=== PATIENT | male | born 1960 | race African-American/Black ===

== ENCOUNTER 2021-08-15 01:01 | Inpatient (IN) | payer MEDICAID, OTHER ==
[2021-08-15] VITALS (8 sets, daily range): BP systolic 102–139; BP diastolic 55–85
[~2021-08-15] VITALS: Ht 182.9 cm; Wt 78.0 kg
[2021-08-15 01:48] LABS: HEMATOCRIT. 34.8 % (42.0-52.0); HEMOGLOBIN. 11.5 g/dL (14.0-18.0); MEAN CORPUSCULAR HEMOGLOBIN 28.6 pg (28.0-32.0); MEAN CORPUSCULAR VOLUME 86.8 fL (80.0-94.0); MEAN PLATELET VOLUME 7.6 fl (7.4-10.4); PLATELET 262 x1000/uL (130-400); RED CELL DISTRIBUTION WIDTH 14.4 % (11.6-14.6)
[2021-08-15 02:00] LABS: CHLORIDE 102 mEq/L (98-107)
[2021-08-15 02:04] LABS: ETHANOL BLOOD < 10 mg/dL
[2021-08-15 02:09] LABS: CREATINE KINASE 733 IU/L (39-308)
[2021-08-15 02:12] LABS: PLATELET ESTIMATE NORMAL
[2021-08-15] MEDS ORDERED: SODIUM CHLORIDE 0.9% 1,000 ML IV ONE (02:15)
[2021-08-15] MEDS ORDERED: LORAZEPAM 2MG/ML CPJ IV ONE (04:45)
[2021-08-15] MEDS ORDERED: CLONIDINE 0.1MG TABLET PO PRN (12:15)
[2021-08-15] MEDS ORDERED: GUAIFENESIN 200MG/10ML SUGAR FREE UDC PO PRN (12:15)
[2021-08-15] MEDS ORDERED: ONDANSETRON HCL 4MG/2ML INJ IV PRN (12:15)
[2021-08-15] MEDS ORDERED: DOCUSATE SODIUM 100MG CAPSULE PO PRN (12:15)
[2021-08-15] MEDS ORDERED: ACETAMINOPHEN 325MG TABLET PO PRN ×2 (12:15)
[2021-08-15] MEDS ORDERED: MAGNESIUM/ALUMINUM HYDROXIDE/SIMETHICONE 30ML UDC PO PRN (12:15)
[2021-08-15] MEDS ORDERED: IPRATROPIUM/ALBUTEROL 0.5-3(2.5)MG/3ML NEB NEB PRN (12:15)
[2021-08-15] MEDS ORDERED: KETOROLAC 30MG/ML VIAL IV PRN (12:15)
[2021-08-15] MEDS ORDERED: ZOLPIDEM TARTRATE 5MG TABLET PO PRN (12:15)
[2021-08-15] MEDS ORDERED: KETOROLAC 15MG/ML VIAL IV PRN (13:22)
[2021-08-15 14:02] LABS: CLARITY URINE CLEAR (CLEAR); COLOR URINE YELLOW (YELLOW); KETONES URINE TRACE (NEGATIVE); LEUKOCYTE ESTERASE URINE NEGATIVE (NEGATIVE); NITRITE URINE NEGATIVE (NEGATIVE); OCCULT BLOOD URINE NEGATIVE (NEGATIVE); PH URINE 5.5 (4.5-8.0); PROTEIN URINE NEGATIVE (NEGATIVE); SPECIFIC GRAVITY URINE 1.023 (1.005-1.030); UROBILINOGEN URINE 0.2 E.U./dL (0.2-1.0)
[2021-08-15 14:19] LABS: *AMPHETAMINES SCREEN URINE NEGATIVE (NEGATIVE); *BARBITURATES SCREEN URINE NEGATIVE (NEGATIVE); *BENZODIAZEPINES SCREEN URINE NEGATIVE (NEGATIVE); *COCAINE SCREEN URINE PRESUMTIVE POSITIVE (NEGATIVE); OPIATES URINE SCREEN NEGATIVE (NEGATIVE)
[2021-08-15 14:20] LABS: CANNABINOID URINE SCREEN PRESUMTIVE POSITIVE (NEGATIVE); PHENCYCLIDINE URINE SCREEN NEGATIVE (NEGATIVE)
[2021-08-15 14:29] LABS: METHADONE URINE SCREEN NEGATIVE (NEGATIVE)
[2021-08-15] MEDS: ENOXAPARIN 40MG/0.4ML SYR SUBCUT SCH (16:12)
[2021-08-15] MEDS: SODIUM CHLORIDE 0.9% 1,000 ML IV SCH ×2 (16:13→22:25)
[2021-08-15 16:48] LABS: ETHANOL BLOOD < 10 mg/dL
[2021-08-15 16:49] LABS: LDL CHOLESTEROL 55 mg/dL (5-100)
[2021-08-15 16:51] LABS: HDL CHOLESTEROL 81 mg/dL (40-59)
[2021-08-15 16:52] LABS: CREATINE KINASE MB FRACTION 3.7 ng/mL (0.5-3.6)
[2021-08-15 16:54] LABS: T4 FREE 1.47 ng/dL (0.76-1.46); TOTAL IRON BINDING CAPACITY 392 ug/dL (250-450)
[2021-08-15 16:59] LABS: FOLIC ACID (FOLATE) SERUM >20 ng/mL ng/mL (>5.38)
[2021-08-15 17:10] LABS: VITAMIN B12 SERUM 276 pg/mL (211-911)
[2021-08-15] MEDS: FAMOTIDINE 20MG TABLET PO SCH (22:24)
[2021-08-16] VITALS: BP 118/65
[2021-08-16 02:02] VITALS: BP 128/76
[2021-08-16 04:00] VITALS: BP 92/52
[2021-08-16 06:00] VITALS: BP 149/90
[2021-08-16 07:08] LABS: *BENZODIAZEPINES SCREEN URINE NEGATIVE (NEGATIVE); *COCAINE SCREEN URINE PRESUMTIVE POSITIVE (NEGATIVE)
[2021-08-16 07:09] LABS: *BARBITURATES SCREEN URINE NEGATIVE (NEGATIVE); CANNABINOID URINE SCREEN PRESUMTIVE POSITIVE (NEGATIVE); OPIATES URINE SCREEN NEGATIVE (NEGATIVE); PHENCYCLIDINE URINE SCREEN NEGATIVE (NEGATIVE)
[2021-08-16 07:10] LABS: *AMPHETAMINES SCREEN URINE NEGATIVE (NEGATIVE); METHADONE URINE SCREEN NEGATIVE (NEGATIVE)
[2021-08-16] MEDS: FAMOTIDINE 20MG TABLET PO SCH ×3 (09:00→22:46)
[2021-08-16] MEDS: SODIUM CHLORIDE 0.9% 1,000 ML IV SCH ×2 (09:22→18:15)
[2021-08-16] MEDS: ENOXAPARIN 40MG/0.4ML SYR SUBCUT SCH (12:30)
[2021-08-16] MEDS: BLOOD SUGAR DIAGNOSTIC STRIP TEST SCH ×2 (16:40→21:00)
[2021-08-16] MEDS ORDERED: DEXTROSE 50% WATER 50ML SYRINGE IV PRN (16:45)
[2021-08-16] MEDS: INSULIN LISPRO 100 UNITS/ML SUBCUT SCH ×2 (17:10→22:47)
[2021-08-16 19:09] LABS: BASOPHILS % 0.2 % (0.0-2.0); EOSINOPHILS % 3.9 % (0.0-5.0); HEMATOCRIT. 37.3 % (42.0-52.0); HEMOGLOBIN. 12.4 g/dL (14.0-18.0); LYMPHOCYTES % 22.1 % (20.0-50.0); MEAN CORPUSCULAR HEMOGLOBIN 29.3 pg (28.0-32.0); MEAN CORPUSCULAR VOLUME 88.5 fL (80.0-94.0); MEAN PLATELET VOLUME 7.8 fl (7.4-10.4); NEUTROPHILS % 64.8 % (40.0-76.0); PLATELET 281 x1000/uL (130-400); RED BLOOD CELL COUNT 4.22 mill/uL (4.7-6.1)
[2021-08-16 19:21] LABS: CHLORIDE 103 mEq/L (98-107)
[2021-08-16 19:27] LABS: PHOSPHORUS 2.7 mg/dL (2.5-4.9)
[2021-08-16 19:29] LABS: CREATINE KINASE 242 IU/L (39-308)
[2021-08-16 19:32] LABS: CREATINE KINASE MB FRACTION 1.4 ng/mL (0.5-3.6)
[2021-08-16 20:00] VITALS: BP 117/75
[2021-08-17] VITALS: BP 120/80
[2021-08-17 04:00] VITALS: BP 118/78
[2021-08-17] MEDS: SODIUM CHLORIDE 0.9% 1,000 ML IV SCH ×2 (04:15→14:15)
[2021-08-17] MEDS: BLOOD SUGAR DIAGNOSTIC STRIP TEST SCH ×4 (06:01→21:33)
[2021-08-17] MEDS: INSULIN LISPRO 100 UNITS/ML SUBCUT SCH ×4 (06:42→21:35)
[2021-08-17 08:00] VITALS: BP 90/58
[2021-08-17] MEDS: FAMOTIDINE 20MG TABLET PO SCH ×2 (08:51→21:37)
[2021-08-17 12:00] VITALS: BP 121/99
[2021-08-17] MEDS: ENOXAPARIN 40MG/0.4ML SYR SUBCUT SCH (12:56)
[2021-08-17] MEDS: INSULIN GLARGINE 100 UNITS/ML SUBCUT SCH (13:19)
[2021-08-17 16:00] VITALS: BP 105/76
[2021-08-17 20:00] VITALS: BP 108/66
[2021-08-18] VITALS: BP 110/48
[2021-08-18] MEDS: SODIUM CHLORIDE 0.9% 1,000 ML IV SCH (00:03)
[2021-08-18] MEDS: BLOOD SUGAR DIAGNOSTIC STRIP TEST SCH ×4 (05:58→21:00)
[2021-08-18] MEDS: INSULIN LISPRO 100 UNITS/ML SUBCUT SCH ×4 (06:32→22:21)
[2021-08-18 08:00] VITALS: BP 112/61
[2021-08-18] MEDS: FAMOTIDINE 20MG TABLET PO SCH ×2 (08:36→22:20)
[2021-08-18] MEDS ORDERED: INSHUMSS SUBCUT (09:44)
[2021-08-18] MEDS ORDERED: LANTUSUD SUBCUT (09:44)
[2021-08-18] MEDS: INSULIN GLARGINE 100 UNITS/ML SUBCUT SCH (10:39)
[2021-08-18 12:00] VITALS: BP 121/65
[2021-08-18] MEDS: ENOXAPARIN 40MG/0.4ML SYR SUBCUT SCH (12:30)
[2021-08-18 16:00] VITALS: BP 115/65
[2021-08-18 20:00] VITALS: BP 107/70
[2021-08-19] VITALS: BP 123/69
[2021-08-19 04:00] VITALS: BP 102/68
[2021-08-19 06:00] VITALS: BP 107/69
[2021-08-19] MEDS: BLOOD SUGAR DIAGNOSTIC STRIP TEST SCH (06:31)
[2021-08-19 08:00] VITALS: BP 124/79
[2021-08-19] MEDS: FAMOTIDINE 20MG TABLET PO SCH (08:30)
[2021-08-19] MEDS: INSULIN LISPRO 100 UNITS/ML SUBCUT SCH (08:30)
[2021-08-19 09:17] VITALS: BP_SYST 124
== END 2021-08-19 11:00 | disposition home or self-care (01) | DRG 52 ==
LOC: ER 01:01 → EDBD 04:48 → 5EST 04:48 → 7EST 08-16 12:05
PROVIDERS: ADMIT Internal Medicine; ATTEND Internal Medicine
DX: G92.8 Other toxic encephalopathy (principal); M62.82 Rhabdomyolysis; D63.8 Anemia in other chronic diseases classified elsewhere; E87.1 Hypo-osmolality and hyponatremia; E11.65 Type 2 diabetes mellitus with hyperglycemia; F14.10 Cocaine abuse, uncomplicated; F12.10 Cannabis abuse, uncomplicated; Z59.00 Homelessness unspecified; F19.10 Other psychoactive substance abuse, uncomplicated; Z71.51 Drug abuse counseling and surveillance of drug abuser
CPT/HCPCS: 36415; 71045; 80053; 80061; 80305; 80320; 81003; 82140; 82550; 82553; 82607; 82746; 82962; 83036; 83540; 83550; 83605; 83735; 83880; 84100; 84439; 84443; 84484; 85025; 93005; 93306; 93970; 97162; 97166; 97530; 99285; J1650; J1815; J2060; J7030; G0480

== ENCOUNTER 2021-11-12 06:12 | Inpatient (IN) | payer MEDICAID, OTHER ==
[~2021-11-12] VITALS: Ht 185.4 cm; Wt 81.6 kg
[~2021-11-12 06:12] MED LIST: INSHUMSS SUBCUT; LANTUSUD SUBCUT
[2021-11-12] MEDS ORDERED: ACETAMINOPHEN 325MG TABLET PO STA (08:46)
[2021-11-12] MEDS ORDERED: ACETAMINOPHEN 325MG TABLET PO NR (09:15)
[2021-11-12 09:48] LABS: HEMATOCRIT. 34.5 % (42.0-52.0); HEMOGLOBIN. 11.4 g/dL (14.0-18.0); MEAN CORPUSCULAR HEMOGLOBIN 29.8 pg (28.0-32.0); MEAN PLATELET VOLUME 7.5 fl (7.4-10.4); PLATELET 281 x1000/uL (130-400); RED BLOOD CELL COUNT 3.83 mill/uL (4.7-6.1); RED CELL DISTRIBUTION WIDTH 14.4 % (11.6-14.6)
[2021-11-12 10:00] LABS: CHLORIDE 95 mEq/L (98-107)
[2021-11-12 10:14] LABS: PLATELET ESTIMATE NORMAL
[2021-11-12] MEDS ORDERED: AMPICILLIN SOD/SULBACTAM NA 3 G in SODIUM CHLORIDE 0.9% 100 ML IV SCH (11:30)
[2021-11-12] MEDS ORDERED: ONDANSETRON HCL 4MG/2ML INJ IV PRN (14:00)
[2021-11-12] MEDS ORDERED: CLONIDINE 0.1MG TABLET PO PRN (14:00)
[2021-11-12] MEDS ORDERED: ACETAMINOPHEN 325MG TABLET PO PRN (14:00)
[2021-11-12] MEDS ORDERED: DOCUSATE SODIUM 100MG CAPSULE PO PRN (14:00)
[2021-11-12] MEDS ORDERED: DEXTROSE 50% WATER 50ML SYRINGE IV PRN (14:45)
[2021-11-12] MEDS ORDERED: NALOXONE HCL 0.4MG/ML VIAL IV PRN (15:00)
[2021-11-12] MEDS ORDERED: INSULIN LISPRO 100 UNITS/ML SUBCUT SCH (15:00)
[2021-11-12] MEDS: ENOXAPARIN 40MG/0.4ML SYR SUBCUT SCH (15:05)
[2021-11-12] MEDS ORDERED: VANCOMYCIN 1.25GM PMX (XELLIA) 250 ML IV SCH (16:30)
[2021-11-12] MEDS: VANCOMYCIN 1.25GM PMX (XELLIA) 250 ML IV SCH (17:28)
[2021-11-12] MEDS: BLOOD SUGAR DIAGNOSTIC STRIP TEST SCH ×2 (17:32→21:26)
[2021-11-12] MEDS: INSULIN LISPRO 100 UNITS/ML SUBCUT SCH ×2 (17:32→21:34)
[2021-11-12] MEDS ORDERED: AMPICILLIN/SULBACTAM 3G in SODIUM CHLORIDE 0.9% 100ML IV SCH (18:00)
[2021-11-12] MEDS: HYDROCODONE/ACETAMINOPHEN 10/325MG TABLET PO PRN (21:39)
[2021-11-12 22:30] VITALS: BP 92/56
[2021-11-12] MEDS ORDERED: HYDROCODONE/ACETAMINOPHEN 5/325MG TABLET PO PRN (23:15)
[2021-11-13 00:13] VITALS: BP 92/56
[2021-11-13 04:00] VITALS: BP 110/66
[2021-11-13] MEDS: VANCOMYCIN 1.25GM PMX (XELLIA) 250 ML IV SCH (05:18)
[2021-11-13 05:47] LABS: CLARITY URINE CLEAR (CLEAR); COLOR URINE YELLOW (YELLOW); KETONES URINE TRACE (NEGATIVE); LEUKOCYTE ESTERASE URINE NEGATIVE (NEGATIVE); NITRITE URINE NEGATIVE (NEGATIVE); OCCULT BLOOD URINE NEGATIVE (NEGATIVE); PH URINE 5.5 (4.5-8.0); PROTEIN URINE TRACE (NEGATIVE); SPECIFIC GRAVITY URINE 1.025 (1.005-1.030); UROBILINOGEN URINE 0.2 E.U./dL (0.2-1.0)
[2021-11-13 05:56] LABS: *AMPHETAMINES SCREEN URINE NEGATIVE (NEGATIVE); *BARBITURATES SCREEN URINE NEGATIVE (NEGATIVE); *BENZODIAZEPINES SCREEN URINE NEGATIVE (NEGATIVE); *COCAINE SCREEN URINE PRESUMTIVE POSITIVE (NEGATIVE); CANNABINOID URINE SCREEN PRESUMTIVE POSITIVE (NEGATIVE); METHADONE URINE SCREEN NEGATIVE (NEGATIVE); OPIATES URINE SCREEN PRESUMTIVE POSITIVE (NEGATIVE); PHENCYCLIDINE URINE SCREEN NEGATIVE (NEGATIVE)
[2021-11-13 06:47] LABS: HEMATOCRIT. 34.5 % (42.0-52.0); HEMOGLOBIN. 11.8 g/dL (14.0-18.0); MEAN CORPUSCULAR HEMOGLOBIN 30.2 pg (28.0-32.0); MEAN CORPUSCULAR VOLUME 88.4 fL (80.0-94.0); MEAN PLATELET VOLUME 7.7 fl (7.4-10.4); PLATELET 296 x1000/uL (130-400); RED BLOOD CELL COUNT 3.91 mill/uL (4.7-6.1); RED CELL DISTRIBUTION WIDTH 14.3 % (11.6-14.6)
[2021-11-13] MEDS: BLOOD SUGAR DIAGNOSTIC STRIP TEST SCH ×4 (07:57→21:00)
[2021-11-13 08:00] VITALS: BP 90/50
[2021-11-13 08:17] LABS: CHLORIDE 102 mEq/L (98-107)
[2021-11-13 08:25] LABS: HDL CHOLESTEROL 46 mg/dL (40-59); LDL CHOLESTEROL 71 mg/dL (5-100)
[2021-11-13] MEDS: PIPERACILLIN/TAZOBACTAM 3.375 G in DEXTROSE 5% WATER 50 ML IV SCH ×3 (09:34→22:25)
[2021-11-13] MEDS: INSULIN LISPRO 100 UNITS/ML SUBCUT SCH ×4 (09:35→22:29)
[2021-11-13 10:40] LABS: PLATELET ESTIMATE NORMAL
[2021-11-13 12:00] VITALS: BP 104/55
[2021-11-13 16:00] VITALS: BP 100/53
[2021-11-13] MEDS ORDERED: SODIUM PHOS,M-BASIC-D-BASIC 15 MM in DEXT 5% WATER 245 ML IV ONE (16:00)
[2021-11-13] MEDS ORDERED: MAGNESIUM 2 G PREMIX 50 ML IV NR (16:00)
[2021-11-13] MEDS: ENOXAPARIN 40MG/0.4ML SYR SUBCUT SCH (16:05)
[2021-11-13] MEDS: VANCOMYCIN 1250MG in DEXTROSE 5% WATER 250ML IV SCH (18:27)
[2021-11-13 20:00] VITALS: BP 98/59
[2021-11-13] MEDS ORDERED: SODIUM PHOS,M-BASIC-D-BASIC 15 MM in DEXT 5% WATER 245 ML IV NR (23:00)
[2021-11-14 04:00] VITALS: BP 132/79
[2021-11-14] MEDS: PIPERACILLIN/TAZOBACTAM 3.375 G in DEXTROSE 5% WATER 50 ML IV SCH ×3 (06:00→23:29)
[2021-11-14] MEDS: VANCOMYCIN 1250MG in DEXTROSE 5% WATER 250ML IV SCH ×2 (06:00→21:06)
[2021-11-14 08:00] VITALS: BP 140/83
[2021-11-14] MEDS: BLOOD SUGAR DIAGNOSTIC STRIP TEST SCH ×4 (08:19→21:00)
[2021-11-14] MEDS: INSULIN LISPRO 100 UNITS/ML SUBCUT SCH ×4 (10:05→21:08)
[2021-11-14 12:00] VITALS: BP 105/70
[2021-11-14] MEDS: ENOXAPARIN 40MG/0.4ML SYR SUBCUT SCH (14:30)
[2021-11-14 16:00] VITALS: BP 90/56
[2021-11-14 20:00] VITALS: BP 113/71
[2021-11-14] MEDS: HYDROCODONE/ACETAMINOPHEN 10/325MG TABLET PO PRN (21:09)
[2021-11-14] MEDS: INSULIN GLARGINE 100 UNITS/ML SUBCUT SCH (22:00)
[2021-11-15] MEDS: HYDROCODONE/ACETAMINOPHEN 10/325MG TABLET PO PRN ×3 (03:25→21:14)
[2021-11-15 04:00] VITALS: BP 135/75
[2021-11-15] MEDS: PIPERACILLIN/TAZOBACTAM 3.375 G in DEXTROSE 5% WATER 50 ML IV SCH ×3 (05:10→21:09)
[2021-11-15] MEDS: BLOOD SUGAR DIAGNOSTIC STRIP TEST SCH ×4 (07:20→21:09)
[2021-11-15] MEDS: INSULIN LISPRO 100 UNITS/ML SUBCUT SCH ×4 (07:20→21:30)
[2021-11-15 08:00] VITALS: BP 138/82
[2021-11-15] MEDS ORDERED: IODIXANOL 320MG/ML 100 ML BOTTLE IV ONE (09:00)
[2021-11-15] MEDS ORDERED: MIDAZOLAM HCL 2 MG/2 ML VIAL ONE (09:00)
[2021-11-15] MEDS ORDERED: HEPARIN 1000 UNITS/ML 10ML ONE (09:00)
[2021-11-15] MEDS ORDERED: FENTANYL CITRATE/PF 50MCG/ML 2ML VIAL ONE (09:00)
[2021-11-15] MEDS ORDERED: LIDOCAINE HCL 1% 10 MG/ML 10ML VIAL ONE (09:01)
[2021-11-15] MEDS: INSULIN GLARGINE 100 UNITS/ML SUBCUT SCH ×2 (10:00→21:30)
[2021-11-15] MEDS: VANCOMYCIN 1250MG in DEXTROSE 5% WATER 250ML IV SCH (12:29)
[2021-11-15] MEDS: ACETAMINOPHEN 325MG TABLET PO PRN (15:46)
[2021-11-15] MEDS: ENOXAPARIN 40MG/0.4ML SYR SUBCUT SCH (15:47)
[2021-11-15 17:23] LABS: CHLORIDE 90 mEq/L (98-107)
[2021-11-15 20:54] VITALS: BP 110/65
[2021-11-16 00:46] VITALS: BP 101/70
[2021-11-16 04:47] VITALS: BP 129/75
[2021-11-16] MEDS: HYDROCODONE/ACETAMINOPHEN 10/325MG TABLET PO PRN ×2 (05:17→22:04)
[2021-11-16] MEDS: PIPERACILLIN/TAZOBACTAM 3.375 G in DEXTROSE 5% WATER 50 ML IV SCH ×3 (05:17→21:48)
[2021-11-16] MEDS: BLOOD SUGAR DIAGNOSTIC STRIP TEST SCH ×4 (07:06→21:08)
[2021-11-16] MEDS: INSULIN LISPRO 100 UNITS/ML SUBCUT SCH ×4 (07:20→21:46)
[2021-11-16 08:00] VITALS: BP 136/90
[2021-11-16] MEDS: INSULIN GLARGINE 100 UNITS/ML SUBCUT SCH ×2 (10:34→21:47)
[2021-11-16 12:00] VITALS: BP 89/57
[2021-11-16] MEDS ORDERED: VANCOMYCIN 1GM PMX (XELLIA) 200 ML IV SCH (12:00)
[2021-11-16] MEDS: ENOXAPARIN 40MG/0.4ML SYR SUBCUT SCH (14:34)
[2021-11-16 16:00] VITALS: BP 100/65
[2021-11-16 20:00] VITALS: BP 127/77
[2021-11-17] VITALS: BP 107/70
[2021-11-17] MEDS: HYDROCODONE/ACETAMINOPHEN 10/325MG TABLET PO PRN (02:12)
[2021-11-17 04:00] VITALS: BP 102/57
[2021-11-17] MEDS: PIPERACILLIN/TAZOBACTAM 3.375 G in DEXTROSE 5% WATER 50 ML IV SCH ×2 (06:00→13:34)
[2021-11-17 06:37] LABS: CHLORIDE 97 mEq/L (98-107)
[2021-11-17] MEDS: BLOOD SUGAR DIAGNOSTIC STRIP TEST SCH ×4 (07:35→21:00)
[2021-11-17 08:00] VITALS: BP 129/82
[2021-11-17] MEDS: INSULIN LISPRO 100 UNITS/ML SUBCUT SCH ×4 (08:11→21:00)
[2021-11-17] MEDS ORDERED: VANCOMYCIN 1GM PMX (XELLIA) 200 ML IV SCH (09:00)
[2021-11-17] MEDS: INSULIN GLARGINE 100 UNITS/ML SUBCUT SCH ×2 (09:58→23:03)
[2021-11-17 12:00] VITALS: BP 112/76
[2021-11-17] MEDS: ENOXAPARIN 40MG/0.4ML SYR SUBCUT SCH (13:34)
[2021-11-17 16:00] VITALS: BP 95/67
[2021-11-17 17:04] LABS: BASOPHILS % 0.3 % (0.0-2.0); HEMATOCRIT. 35.8 % (42.0-52.0); HEMOGLOBIN. 12.1 g/dL (14.0-18.0); LYMPHOCYTES % 15.2 % (20.0-50.0); MEAN CORPUSCULAR HEMOGLOBIN 30.4 pg (28.0-32.0); MEAN CORPUSCULAR VOLUME 89.6 fL (80.0-94.0); MONOCYTES % 7.8 % (2.0-8.0); NEUTROPHILS % 74.7 % (40.0-76.0); PLATELET 429 x1000/uL (130-400); RED BLOOD CELL COUNT 3.99 mill/uL (4.7-6.1); RED CELL DISTRIBUTION WIDTH 13.9 % (11.6-14.6)
[2021-11-17 20:00] VITALS: BP 119/65
[2021-11-18] MEDS: INSULIN LISPRO 100 UNITS/ML SUBCUT SCH ×4 (07:20→22:21)
[2021-11-18 08:00] VITALS: BP 91/60
[2021-11-18] MEDS: BLOOD SUGAR DIAGNOSTIC STRIP TEST SCH ×4 (08:16→21:00)
[2021-11-18] MEDS ORDERED: HYDROCODONE/ACETAMINOPHEN 5/325MG TABLET PO PRN (11:15)
[2021-11-18] MEDS: HYDROCODONE/ACETAMINOPHEN 10/325MG TABLET PO PRN (12:08)
[2021-11-18] MEDS: ENOXAPARIN 40MG/0.4ML SYR SUBCUT SCH (14:24)
[2021-11-18 16:00] VITALS: BP 130/82
[2021-11-18] MEDS ORDERED: VANCOMYCIN 1GM PMX (XELLIA) 200 ML IV NR (17:00)
[2021-11-18 20:00] VITALS: BP 83/53
[2021-11-18] MEDS: PIPERACILLIN/TAZOBACTAM 3.375 G in DEXTROSE 5% WATER 50 ML IV SCH (22:20)
[2021-11-18] MEDS: INSULIN GLARGINE 100 UNITS/ML SUBCUT SCH (22:22)
[2021-11-19] VITALS: BP 100/61
[2021-11-19] MEDS: HYDROCODONE/ACETAMINOPHEN 10/325MG TABLET PO PRN (02:05)
[2021-11-19] MEDS: PIPERACILLIN/TAZOBACTAM 3.375 G in DEXTROSE 5% WATER 50 ML IV SCH (06:41)
[2021-11-19] MEDS: BLOOD SUGAR DIAGNOSTIC STRIP TEST SCH ×4 (06:42→20:39)
[2021-11-19] MEDS: VANCOMYCIN 750MG PREMIX 150 ML IV SCH ×2 (06:42→17:32)
[2021-11-19 08:00] VITALS: BP 127/82
[2021-11-19] MEDS: INSULIN LISPRO 100 UNITS/ML SUBCUT SCH ×4 (08:40→21:01)
[2021-11-19] MEDS: INSULIN GLARGINE 100 UNITS/ML SUBCUT SCH ×2 (11:02→21:27)
[2021-11-19] MEDS: ACETAMINOPHEN 325MG TABLET PO PRN (12:54)
[2021-11-19] MEDS: ENOXAPARIN 40MG/0.4ML SYR SUBCUT SCH (15:01)
[2021-11-19] MEDS: MEROPENEM 1,000 MG in SODIUM CHLORIDE 0.9% 100 ML IV SCH ×2 (15:02→21:00)
[2021-11-19 16:00] VITALS: BP 124/76
[2021-11-19 20:00] VITALS: BP 108/63
[2021-11-19 23:56] VITALS: BP 117/71
[2021-11-20] MEDS: HYDROCODONE/ACETAMINOPHEN 10/325MG TABLET PO PRN ×2 (01:08→16:08)
[2021-11-20 04:00] VITALS: BP 140/80
[2021-11-20] MEDS: MEROPENEM 1,000 MG in SODIUM CHLORIDE 0.9% 100 ML IV SCH ×3 (05:27→22:52)
[2021-11-20] MEDS: VANCOMYCIN 750MG PREMIX 150 ML IV SCH ×2 (06:08→18:12)
[2021-11-20 07:10] LABS: CHLORIDE 100 mEq/L (98-107)
[2021-11-20] MEDS: INSULIN LISPRO 100 UNITS/ML SUBCUT SCH ×4 (07:20→21:00)
[2021-11-20] MEDS: BLOOD SUGAR DIAGNOSTIC STRIP TEST SCH ×4 (07:20→21:00)
[2021-11-20 08:00] VITALS: BP_SYST 110; BP_SYST 123; BP_DIAS 73; BP_DIAS 74
[2021-11-20] MEDS: INSULIN GLARGINE 100 UNITS/ML SUBCUT SCH ×2 (09:37→23:03)
[2021-11-20 12:00] VITALS: BP 110/74
[2021-11-20 16:00] VITALS: BP 120/75
[2021-11-20] MEDS: ENOXAPARIN 40MG/0.4ML SYR SUBCUT SCH (16:07)
[2021-11-21] VITALS: BP 127/69
[2021-11-21 04:00] VITALS: BP 103/53
[2021-11-21] MEDS: MEROPENEM 1,000 MG in SODIUM CHLORIDE 0.9% 100 ML IV SCH ×3 (06:00→22:46)
[2021-11-21] MEDS: INSULIN LISPRO 100 UNITS/ML SUBCUT SCH ×4 (07:00→23:35)
[2021-11-21] MEDS: BLOOD SUGAR DIAGNOSTIC STRIP TEST SCH ×4 (07:21→21:00)
[2021-11-21 08:00] VITALS: BP 112/71
[2021-11-21] MEDS: VANCOMYCIN 750MG PREMIX 150 ML IV SCH ×2 (10:00→18:43)
[2021-11-21] MEDS: INSULIN GLARGINE 100 UNITS/ML SUBCUT SCH ×2 (12:06→23:36)
[2021-11-21 12:32] VITALS: BP 107/66
[2021-11-21] MEDS: ENOXAPARIN 40MG/0.4ML SYR SUBCUT SCH (14:30)
[2021-11-21 16:00] VITALS: BP 95/60
[2021-11-21] MEDS: HYDROCODONE/ACETAMINOPHEN 10/325MG TABLET PO PRN (18:43)
[2021-11-22 04:00] VITALS: BP 135/82
[2021-11-22] MEDS: MEROPENEM 1,000 MG in SODIUM CHLORIDE 0.9% 100 ML IV SCH ×3 (06:43→22:00)
[2021-11-22] MEDS: VANCOMYCIN 750MG PREMIX 150 ML IV SCH ×2 (06:43→18:00)
[2021-11-22] MEDS: INSULIN LISPRO 100 UNITS/ML SUBCUT SCH ×4 (07:59→21:00)
[2021-11-22 08:00] VITALS: BP 99/60
[2021-11-22] MEDS: BLOOD SUGAR DIAGNOSTIC STRIP TEST SCH ×4 (08:19→21:38)
[2021-11-22] MEDS: INSULIN GLARGINE 100 UNITS/ML SUBCUT SCH ×2 (10:00→21:02)
[2021-11-22 12:00] VITALS: BP 98/65
[2021-11-22] MEDS: ENOXAPARIN 40MG/0.4ML SYR SUBCUT SCH (15:12)
[2021-11-22 16:00] VITALS: BP 119/90
[2021-11-22 20:00] VITALS: BP 153/85
[2021-11-22] MEDS: HYDROCODONE/ACETAMINOPHEN 10/325MG TABLET PO PRN (20:48)
[2021-11-23] VITALS: BP 148/70
[2021-11-23] MEDS: INSULIN LISPRO 100 UNITS/ML SUBCUT SCH ×4 (07:20→21:44)
[2021-11-23] MEDS: BLOOD SUGAR DIAGNOSTIC STRIP TEST SCH ×3 (07:20→21:49)
[2021-11-23 08:01] LABS: BASOPHILS % 0.7 % (0.0-2.0); EOSINOPHILS % 3.5 % (0.0-5.0); HEMATOCRIT. 32.4 % (42.0-52.0); HEMOGLOBIN. 11.1 g/dL (14.0-18.0); LYMPHOCYTES % 30.4 % (20.0-50.0); MEAN CORPUSCULAR HEMOGLOBIN 30.1 pg (28.0-32.0); MEAN CORPUSCULAR VOLUME 87.7 fL (80.0-94.0); MONOCYTES % 11.2 % (2.0-8.0); NEUTROPHILS % 54.2 % (40.0-76.0); PLATELET 457 x1000/uL (130-400); RED BLOOD CELL COUNT 3.69 mill/uL (4.7-6.1); RED CELL DISTRIBUTION WIDTH 14.3 % (11.6-14.6)
[2021-11-23 08:24] LABS: CHLORIDE 100 mEq/L (98-107)
[2021-11-23] MEDS: INSULIN GLARGINE 100 UNITS/ML SUBCUT SCH ×2 (10:00→21:43)
[2021-11-23] MEDS ORDERED: LIDOCAINE HCL 1% 10 MG/ML 10ML VIAL ONE (12:45)
[2021-11-23] MEDS: MEROPENEM 1,000 MG in SODIUM CHLORIDE 0.9% 100 ML IV SCH ×2 (14:00→21:53)
[2021-11-23] MEDS: ENOXAPARIN 40MG/0.4ML SYR SUBCUT SCH (14:30)
[2021-11-23] MEDS: VANCOMYCIN 750MG PREMIX 150 ML IV SCH (17:35)
[2021-11-23] MEDS: HYDROCODONE/ACETAMINOPHEN 10/325MG TABLET PO PRN (17:36)
[2021-11-23 20:00] VITALS: BP 108/65
[2021-11-24] MEDS: MEROPENEM 1,000 MG in SODIUM CHLORIDE 0.9% 100 ML IV SCH ×3 (05:01→21:02)
[2021-11-24] MEDS: BLOOD SUGAR DIAGNOSTIC STRIP TEST SCH ×4 (05:34→21:00)
[2021-11-24] MEDS: INSULIN LISPRO 100 UNITS/ML SUBCUT SCH ×4 (07:20→21:06)
[2021-11-24 08:00] VITALS: BP 122/77
[2021-11-24] MEDS: HYDROCODONE/ACETAMINOPHEN 10/325MG TABLET PO PRN ×2 (10:04→17:43)
[2021-11-24] MEDS: INSULIN GLARGINE 100 UNITS/ML SUBCUT SCH ×2 (10:05→21:05)
[2021-11-24 12:00] VITALS: BP 98/56
[2021-11-24] MEDS: ENOXAPARIN 40MG/0.4ML SYR SUBCUT SCH (13:57)
[2021-11-24 16:00] VITALS: BP 98/56
[2021-11-24 20:00] VITALS: BP 123/83
[2021-11-25] VITALS: BP 92/54
[2021-11-25 04:00] VITALS: BP 108/61
[2021-11-25] MEDS: MEROPENEM 1,000 MG in SODIUM CHLORIDE 0.9% 100 ML IV SCH ×4 (06:00→22:56)
[2021-11-25] MEDS: BLOOD SUGAR DIAGNOSTIC STRIP TEST SCH ×4 (06:32→20:44)
[2021-11-25] MEDS: INSULIN LISPRO 100 UNITS/ML SUBCUT SCH ×4 (07:20→20:43)
[2021-11-25 08:00] VITALS: BP 109/73
[2021-11-25] MEDS: HYDROCODONE/ACETAMINOPHEN 10/325MG TABLET PO PRN ×2 (10:04→22:03)
[2021-11-25] MEDS: INSULIN GLARGINE 100 UNITS/ML SUBCUT SCH ×2 (10:23→21:57)
[2021-11-25] MEDS: LOPERAMIDE 2MG/15ML UDC PO PRN (10:45)
[2021-11-25 12:00] VITALS: BP 119/98
[2021-11-25] MEDS: ENOXAPARIN 40MG/0.4ML SYR SUBCUT SCH (13:49)
[2021-11-25] MEDS: GABAPENTIN 300MG CAPSULE PO SCH ×2 (14:23→21:54)
[2021-11-25] MEDS: LOPERAMIDE HCL 2MG CAPSULE PO PRN (15:21)
[2021-11-25 16:00] VITALS: BP 110/64
[2021-11-25 20:00] VITALS: BP 95/56
[2021-11-26] MEDS: GABAPENTIN 300MG CAPSULE PO SCH ×3 (05:20→20:31)
[2021-11-26] MEDS: MEROPENEM 1,000 MG in SODIUM CHLORIDE 0.9% 100 ML IV SCH ×2 (05:22→21:12)
[2021-11-26] MEDS: INSULIN LISPRO 100 UNITS/ML SUBCUT SCH ×4 (07:20→20:37)
[2021-11-26] MEDS: BLOOD SUGAR DIAGNOSTIC STRIP TEST SCH ×4 (08:04→20:38)
[2021-11-26] MEDS: INSULIN GLARGINE 100 UNITS/ML SUBCUT SCH ×2 (10:02→21:17)
[2021-11-26] MEDS: HYDROCODONE/ACETAMINOPHEN 10/325MG TABLET PO PRN ×2 (11:06→20:30)
[2021-11-26 12:00] VITALS: BP 106/78
[2021-11-26] MEDS: ENOXAPARIN 40MG/0.4ML SYR SUBCUT SCH (12:51)
[2021-11-26 16:00] VITALS: BP 138/92
[2021-11-26] MEDS: LOPERAMIDE 2MG/15ML UDC PO PRN (20:32)
[2021-11-27 04:00] VITALS: BP 93/57
[2021-11-27] MEDS: GABAPENTIN 300MG CAPSULE PO SCH ×3 (05:19→22:33)
[2021-11-27] MEDS: LOPERAMIDE HCL 2MG CAPSULE PO PRN (05:19)
[2021-11-27] MEDS: INSULIN LISPRO 100 UNITS/ML SUBCUT SCH ×3 (07:20→21:00)
[2021-11-27] MEDS: BLOOD SUGAR DIAGNOSTIC STRIP TEST SCH ×4 (07:53→21:00)
[2021-11-27] MEDS: INSULIN GLARGINE 100 UNITS/ML SUBCUT SCH ×2 (08:44→22:31)
[2021-11-27] MEDS: HYDROCODONE/ACETAMINOPHEN 10/325MG TABLET PO PRN (10:30)
[2021-11-27 12:00] VITALS: BP 108/75
[2021-11-27] MEDS: ENOXAPARIN 40MG/0.4ML SYR SUBCUT SCH (13:19)
[2021-11-27 16:00] VITALS: BP 106/93
[2021-11-27 20:00] VITALS: BP 98/55
[2021-11-27] MEDS: HYDROCODONE/ACETAMINOPHEN 5/325MG TABLET PO PRN (22:26)
[2021-11-28] VITALS: BP 99/57
[2021-11-28 04:00] VITALS: BP 99/56
[2021-11-28] MEDS: GABAPENTIN 300MG CAPSULE PO SCH ×3 (06:49→21:02)
[2021-11-28] MEDS: HYDROCODONE/ACETAMINOPHEN 5/325MG TABLET PO PRN (06:55)
[2021-11-28] MEDS: INSULIN LISPRO 100 UNITS/ML SUBCUT SCH ×4 (06:56→21:00)
[2021-11-28] MEDS: BLOOD SUGAR DIAGNOSTIC STRIP TEST SCH ×4 (06:57→21:01)
[2021-11-28 08:00] VITALS: BP 81/57
[2021-11-28 08:00] LABS: BASOPHILS % 0.7 % (0.0-2.0); EOSINOPHILS % 4.9 % (0.0-5.0); HEMATOCRIT. 30.9 % (42.0-52.0); HEMOGLOBIN. 10.4 g/dL (14.0-18.0); LYMPHOCYTES % 35.8 % (20.0-50.0); MEAN CORPUSCULAR HEMOGLOBIN 30.1 pg (28.0-32.0); MEAN CORPUSCULAR VOLUME 89.6 fL (80.0-94.0); MEAN PLATELET VOLUME 7.3 fl (7.4-10.4); MONOCYTES % 10.2 % (2.0-8.0); NEUTROPHILS % 48.4 % (40.0-76.0); PLATELET 402 x1000/uL (130-400); RED BLOOD CELL COUNT 3.45 mill/uL (4.7-6.1); RED CELL DISTRIBUTION WIDTH 14.5 % (11.6-14.6)
[2021-11-28] MEDS: INSULIN GLARGINE 100 UNITS/ML SUBCUT SCH ×2 (08:51→21:02)
[2021-11-28 10:03] LABS: CHLORIDE 102 mEq/L (98-107)
[2021-11-28 12:00] VITALS: BP 126/69
[2021-11-28] MEDS: ENOXAPARIN 40MG/0.4ML SYR SUBCUT SCH (12:56)
[2021-11-28 16:00] VITALS: BP 93/53
[2021-11-28 20:00] VITALS: BP 99/65
[2021-11-28] MEDS ORDERED: HYDROCODONE/ACETAMINOPHEN 5/325MG TABLET PO PRN (20:15)
[2021-11-28] MEDS: HYDROCODONE/ACETAMINOPHEN 10/325MG TABLET PO PRN (21:04)
[2021-11-29] VITALS: BP 93/65
[2021-11-29 04:00] VITALS: BP 96/60
[2021-11-29] MEDS: GABAPENTIN 300MG CAPSULE PO SCH ×3 (05:43→21:10)
[2021-11-29] MEDS: HYDROCODONE/ACETAMINOPHEN 10/325MG TABLET PO PRN ×2 (05:44→20:29)
[2021-11-29] MEDS: BLOOD SUGAR DIAGNOSTIC STRIP TEST SCH ×4 (06:29→21:11)
[2021-11-29] MEDS: INSULIN LISPRO 100 UNITS/ML SUBCUT SCH ×4 (06:29→21:00)
[2021-11-29 08:00] VITALS: BP 109/65
[2021-11-29 08:56] LABS: BASOPHILS % 0.5 % (0.0-2.0); CHLORIDE 105 mEq/L (98-107); EOSINOPHILS % 3.6 % (0.0-5.0); HEMATOCRIT. 30.2 % (42.0-52.0); HEMOGLOBIN. 10.4 g/dL (14.0-18.0); LYMPHOCYTES % 20.2 % (20.0-50.0); MEAN CORPUSCULAR HEMOGLOBIN 30.5 pg (28.0-32.0); MEAN CORPUSCULAR VOLUME 88.5 fL (80.0-94.0); MEAN PLATELET VOLUME 7.1 fl (7.4-10.4); MONOCYTES % 10.6 % (2.0-8.0); NEUTROPHILS % 65.1 % (40.0-76.0); PLATELET 387 x1000/uL (130-400); RED BLOOD CELL COUNT 3.41 mill/uL (4.7-6.1); RED CELL DISTRIBUTION WIDTH 14.1 % (11.6-14.6)
[2021-11-29] MEDS: INSULIN GLARGINE 100 UNITS/ML SUBCUT SCH ×2 (09:23→21:12)
[2021-11-29 12:00] VITALS: BP 102/66
[2021-11-29] MEDS: ENOXAPARIN 40MG/0.4ML SYR SUBCUT SCH (13:06)
[2021-11-29 16:00] VITALS: BP 91/60
[2021-11-29 20:00] VITALS: BP 108/68
[2021-11-29] MEDS: LOPERAMIDE HCL 2MG CAPSULE PO PRN (20:37)
[2021-11-30] VITALS: BP 110/70
[2021-11-30] MEDS: HYDROCODONE/ACETAMINOPHEN 10/325MG TABLET PO PRN ×2 (03:43→13:26)
[2021-11-30 04:00] VITALS: BP 112/72
[2021-11-30] MEDS: BLOOD SUGAR DIAGNOSTIC STRIP TEST SCH ×4 (06:39→21:45)
[2021-11-30] MEDS: GABAPENTIN 300MG CAPSULE PO SCH ×3 (06:47→21:45)
[2021-11-30] MEDS: ACETAMINOPHEN 325MG TABLET PO PRN (06:47)
[2021-11-30] MEDS: INSULIN LISPRO 100 UNITS/ML SUBCUT SCH ×4 (07:20→21:00)
[2021-11-30 08:00] VITALS: BP 120/70
[2021-11-30] MEDS: INSULIN GLARGINE 100 UNITS/ML SUBCUT SCH ×2 (09:01→23:42)
[2021-11-30 12:00] VITALS: BP_SYST 100
[2021-11-30] MEDS: ENOXAPARIN 40MG/0.4ML SYR SUBCUT SCH (13:14)
[2021-11-30 16:00] VITALS: BP 99/54
[2021-11-30] MEDS: LOPERAMIDE 2MG/15ML UDC PO PRN (19:04)
[2021-11-30 20:00] VITALS: BP 96/57
[2021-12-01] VITALS: BP 95/54
[2021-12-01 04:00] VITALS: BP 99/56
[2021-12-01] MEDS: GABAPENTIN 300MG CAPSULE PO SCH ×2 (06:47→14:43)
[2021-12-01] MEDS: BLOOD SUGAR DIAGNOSTIC STRIP TEST SCH (06:48)
[2021-12-01] MEDS: INSULIN LISPRO 100 UNITS/ML SUBCUT SCH (06:48)
[2021-12-01] MEDS: HYDROCODONE/ACETAMINOPHEN 10/325MG TABLET PO PRN ×2 (07:50→16:44)
[2021-12-01 08:00] VITALS: BP 104/62
[2021-12-01] MEDS: INSULIN GLARGINE 100 UNITS/ML SUBCUT SCH (09:41)
[2021-12-01 12:00] VITALS: BP 119/74
[2021-12-01] MEDS ORDERED: NALOXONE HCL 0.4MG/ML VIAL IV PRN (14:30)
[2021-12-01] MEDS: ENOXAPARIN 40MG/0.4ML SYR SUBCUT SCH (14:46)
[2021-12-01 16:00] VITALS: BP 118/64
[2021-12-01 17:10] VITALS: BP 118/64
== END 2021-12-01 18:46 | disposition home or self-care (01) | DRG 720 ==
LOC: ER 06:12 → EDBEDREQ 12:17 → EDBEDREQTM 12:17 → ENRESERV 20:52 → 6EST 22:45
PROVIDERS: ADMIT Internal Medicine; ATTEND Internal Medicine
PROC: 0JBP0ZZ Excision of Left Lower Leg Subcutaneous Tissue and Fascia, Open Approach (ICD-10-PCS; 2021-11-13)
PROC: 0JBR0ZZ Excision of Left Foot Subcutaneous Tissue and Fascia, Open Approach (ICD-10-PCS; 2021-11-13)
PROC: B41F1ZZ Fluoroscopy of Right Lower Extremity Arteries using Low Osmolar Contrast (ICD-10-PCS; 2021-11-15)
PROC: 0JBR0ZZ Excision of Left Foot Subcutaneous Tissue and Fascia, Open Approach (ICD-10-PCS; 2021-11-20)
PROC: 0JBP0ZZ Excision of Left Lower Leg Subcutaneous Tissue and Fascia, Open Approach (ICD-10-PCS; 2021-11-20)
PROC: 02HV33Z Insertion of Infusion Device into Superior Vena Cava, Percutaneous Approach (ICD-10-PCS; principal; 2021-11-23)
PROC: B5181ZA Fluoroscopy of Superior Vena Cava using Low Osmolar Contrast, Guidance (ICD-10-PCS; 2021-11-23)
PROC: B548ZZA Ultrasonography of Superior Vena Cava, Guidance (ICD-10-PCS; 2021-11-23)
PROC: 0JBR0ZZ Excision of Left Foot Subcutaneous Tissue and Fascia, Open Approach (ICD-10-PCS; 2021-11-28)
PROC: 0JBP0ZZ Excision of Left Lower Leg Subcutaneous Tissue and Fascia, Open Approach (ICD-10-PCS; 2021-11-28)
DX: A41.9 Sepsis, unspecified organism (principal); E44.0 Moderate protein-calorie malnutrition; E11.40 Type 2 diabetes mellitus with diabetic neuropathy, unspecified; E11.51 Type 2 diabetes mellitus with diabetic peripheral angiopathy without gangrene; E87.1 Hypo-osmolality and hyponatremia; D64.9 Anemia, unspecified; L03.116 Cellulitis of left lower limb; F14.90 Cocaine use, unspecified, uncomplicated; E87.8 Other disorders of electrolyte and fluid balance, not elsewhere classified; F17.200 Nicotine dependence, unspecified, uncomplicated; Z59.00 Homelessness unspecified; Z68.23 Body mass index [BMI] 23.0-23.9, adult; Z20.822 Contact with and (suspected) exposure to COVID-19
CPT/HCPCS: 36246; 36415; 36573; 73630; 75710; 80048; 80053; 80061; 80202; 80305; 81003; 82962; 83036; 83605; 83735; 84100; 84145; 85025; 87070; 87077; 87186; 87426; 93923; 93970; 97162; 97165; 97166; 97535; 99285; C1725; C1760; C1769; C1893; C9803; J0295; J1644; J1650; J1815; J2185; J2250; J2543; J3010; J3370; J3475; J3490; J7050; J7060; Q9967

== ENCOUNTER 2021-12-08 07:16 | Inpatient (IN) | payer OTHER ==
[~2021-12-08] VITALS: Ht 185.4 cm; Wt 84.4 kg
[2021-12-08] MEDS ORDERED: KETOROLAC 30MG/ML VIAL IV STA (07:23)
[2021-12-08 09:01] LABS: HEMATOCRIT. 32.8 % (42.0-52.0); HEMOGLOBIN. 10.8 g/dL (14.0-18.0); MEAN CORPUSCULAR HEMOGLOBIN 29.4 pg (28.0-32.0); MEAN PLATELET VOLUME 7.5 fl (7.4-10.4); PLATELET 303 x1000/uL (130-400); RED BLOOD CELL COUNT 3.68 mill/uL (4.7-6.1); RED CELL DISTRIBUTION WIDTH 14.1 % (11.6-14.6)
[2021-12-08 09:09] LABS: CHLORIDE 99 mEq/L (98-107)
[2021-12-08 09:11] LABS: PROTHROMBIN TIME 11.2 sec (9.6-11.0)
[2021-12-08 09:16] LABS: ETHANOL BLOOD < 10 mg/dL
[2021-12-08] MEDS ORDERED: SODIUM CHLORIDE 0.9% 1,000 ML IV ONE (09:30)
[2021-12-08 10:11] LABS: PLATELET ESTIMATE NORMAL
[2021-12-08] MEDS ORDERED: CEFTRIAXONE 1 G PREMIX 50 ML IV ONE (10:15)
[2021-12-08 16:00] VITALS: BP 131/62
[2021-12-08 17:07] LABS: *AMPHETAMINES SCREEN URINE NEGATIVE (NEGATIVE); *BARBITURATES SCREEN URINE NEGATIVE (NEGATIVE); *BENZODIAZEPINES SCREEN URINE NEGATIVE (NEGATIVE); *COCAINE SCREEN URINE PRESUMTIVE POSITIVE (NEGATIVE); CANNABINOID URINE SCREEN PRESUMTIVE POSITIVE (NEGATIVE); METHADONE URINE SCREEN NEGATIVE (NEGATIVE); OPIATES URINE SCREEN NEGATIVE (NEGATIVE); PHENCYCLIDINE URINE SCREEN NEGATIVE (NEGATIVE)
[2021-12-08] MEDS ORDERED: HYDROCODONE/ACETAMINOPHEN 5/325MG TABLET PO PRN (17:45)
[2021-12-08 18:14] VITALS: BP 131/62
[2021-12-08] MEDS ORDERED: NALOXONE HCL 0.4MG/ML VIAL IV PRN (18:45)
[2021-12-08] MEDS ORDERED: ONDANSETRON HCL 4MG/2ML INJ IV PRN (18:45)
[2021-12-08] MEDS ORDERED: ACETAMINOPHEN 325MG TABLET PO PRN (18:45)
[2021-12-08] MEDS ORDERED: DEXTROSE 50% WATER 50ML SYRINGE IV PRN ×2 (18:45)
[2021-12-08 20:00] VITALS: BP 114/57
[2021-12-08] MEDS ORDERED: PIPERACILLIN/TAZOBACTAM 3.375G in DEXT 5% WATER 50ML IV SCH (20:00)
[2021-12-08] MEDS: VANCOMYCIN 1500MG in DEXTROSE 5% WATER 250ML IV NR (20:00)
[2021-12-08] MEDS: BLOOD SUGAR DIAGNOSTIC STRIP TEST SCH (21:00)
[2021-12-08] MEDS: INSULIN LISPRO 100 UNITS/ML SUBCUT SCH (21:56)
[2021-12-08] MEDS ORDERED: PIPERACILLIN/TAZOBACTAM 3.375GM/50ML PREMIX IV SCH (22:00)
[2021-12-09] VITALS: BP 120/60
[2021-12-09 04:00] VITALS: BP 124/69
[2021-12-09] MEDS: BLOOD SUGAR DIAGNOSTIC STRIP TEST SCH ×4 (07:44→21:00)
[2021-12-09 08:00] VITALS: BP 101/60
[2021-12-09] MEDS ORDERED: VANCOMYCIN 1GM PMX (XELLIA) 200 ML IV SCH ×2 (08:00→21:00)
[2021-12-09] MEDS: INSULIN LISPRO 100 UNITS/ML SUBCUT SCH ×4 (08:58→21:21)
[2021-12-09] MEDS: ENOXAPARIN 40MG/0.4ML SYR SUBCUT SCH (08:59)
[2021-12-09] MEDS: MEROPENEM 1,000 MG in SODIUM CHLORIDE 0.9% 100 ML IV SCH ×2 (12:00→17:36)
[2021-12-09 20:00] VITALS: BP 103/63
[2021-12-09] MEDS: VANCOMYCIN 1500MG in DEXTROSE 5% WATER 250ML IV NR (21:20)
[2021-12-10] VITALS: BP 116/69
[2021-12-10 04:00] VITALS: BP 120/65
[2021-12-10 06:59] LABS: BASOPHILS % 0.1 % (0.0-2.0); EOSINOPHILS % 2.7 % (0.0-5.0); HEMATOCRIT. 30.7 % (42.0-52.0); HEMOGLOBIN. 10.5 g/dL (14.0-18.0); LYMPHOCYTES % 11.2 % (20.0-50.0); MEAN CORPUSCULAR HEMOGLOBIN 30.1 pg (28.0-32.0); MEAN CORPUSCULAR VOLUME 88.2 fL (80.0-94.0); MEAN PLATELET VOLUME 7.6 fl (7.4-10.4); PLATELET 250 x1000/uL (130-400); RED BLOOD CELL COUNT 3.48 mill/uL (4.7-6.1)
[2021-12-10 07:16] LABS: CHLORIDE 105 mEq/L (98-107)
[2021-12-10] MEDS: BLOOD SUGAR DIAGNOSTIC STRIP TEST SCH ×4 (07:40→20:58)
[2021-12-10 08:00] VITALS: BP 116/59
[2021-12-10] MEDS: ENOXAPARIN 40MG/0.4ML SYR SUBCUT SCH (08:44)
[2021-12-10] MEDS: INSULIN LISPRO 100 UNITS/ML SUBCUT SCH ×4 (08:55→20:58)
[2021-12-10] MEDS: VANCOMYCIN 750MG PREMIX 150 ML IV SCH ×2 (09:00→20:58)
[2021-12-10] MEDS: MEROPENEM 1,000 MG in SODIUM CHLORIDE 0.9% 100 ML IV SCH ×2 (10:00→17:39)
[2021-12-10 12:00] VITALS: BP 132/81
[2021-12-10 16:00] VITALS: BP 147/78
[2021-12-10] MEDS: HYDROCODONE/ACETAMINOPHEN 5/325MG TABLET PO PRN (18:11)
[2021-12-10 20:00] VITALS: BP 100/65
[2021-12-10] MEDS: GABAPENTIN 300MG CAPSULE PO SCH (21:41)
[2021-12-11] VITALS: BP 109/69
[2021-12-11] MEDS: MEROPENEM 1,000 MG in SODIUM CHLORIDE 0.9% 100 ML IV SCH ×3 (01:16→17:39)
[2021-12-11] MEDS: HYDROCODONE/ACETAMINOPHEN 5/325MG TABLET PO PRN ×2 (03:43→14:28)
[2021-12-11] MEDS: BLOOD SUGAR DIAGNOSTIC STRIP TEST SCH ×4 (05:36→20:42)
[2021-12-11] MEDS: GABAPENTIN 300MG CAPSULE PO SCH ×3 (05:41→20:46)
[2021-12-11] MEDS: INSULIN LISPRO 100 UNITS/ML SUBCUT SCH ×4 (05:41→20:42)
[2021-12-11 08:00] VITALS: BP 94/53
[2021-12-11] MEDS ORDERED: LIDOCAINE HCL/PF 1% 10 MG/ML 5ML VIAL ONE (09:18)
[2021-12-11] MEDS: VANCOMYCIN 750MG PREMIX 150 ML IV SCH ×2 (11:25→20:46)
[2021-12-11] MEDS: ENOXAPARIN 40MG/0.4ML SYR SUBCUT SCH (11:25)
[2021-12-11 12:00] VITALS: BP 120/83
[2021-12-11 16:00] VITALS: BP 100/66
[2021-12-11 20:00] VITALS: BP 92/60
[2021-12-12] VITALS: BP 109/68
[2021-12-12] MEDS: MEROPENEM 1,000 MG in SODIUM CHLORIDE 0.9% 100 ML IV SCH ×3 (02:27→18:17)
[2021-12-12] MEDS: HYDROCODONE/ACETAMINOPHEN 5/325MG TABLET PO PRN ×3 (02:29→22:03)
[2021-12-12 04:00] VITALS: BP 110/66
[2021-12-12] MEDS: BLOOD SUGAR DIAGNOSTIC STRIP TEST SCH ×4 (05:53→22:01)
[2021-12-12] MEDS: GABAPENTIN 300MG CAPSULE PO SCH ×3 (05:53→22:02)
[2021-12-12] MEDS: ENOXAPARIN 40MG/0.4ML SYR SUBCUT SCH (08:08)
[2021-12-12] MEDS: VANCOMYCIN 750MG PREMIX 150 ML IV SCH ×2 (08:08→22:07)
[2021-12-12] MEDS: INSULIN LISPRO 100 UNITS/ML SUBCUT SCH ×4 (08:08→22:08)
[2021-12-12 20:00] VITALS: BP 132/71
[2021-12-12] MEDS: INSULIN GLARGINE 100 UNITS/ML SUBCUT SCH (22:02)
[2021-12-13] VITALS: BP 97/53
[2021-12-13] MEDS: MEROPENEM 1,000 MG in SODIUM CHLORIDE 0.9% 100 ML IV SCH ×3 (01:56→17:59)
[2021-12-13 04:00] VITALS: BP 102/68
[2021-12-13] MEDS: GABAPENTIN 300MG CAPSULE PO SCH ×3 (05:15→21:16)
[2021-12-13] MEDS: BLOOD SUGAR DIAGNOSTIC STRIP TEST SCH ×4 (06:14→21:00)
[2021-12-13 07:15] LABS: CHLORIDE 100 mEq/L (98-107)
[2021-12-13 08:00] VITALS: BP 98/65
[2021-12-13] MEDS: ENOXAPARIN 40MG/0.4ML SYR SUBCUT SCH (08:47)
[2021-12-13] MEDS: INSULIN LISPRO 100 UNITS/ML SUBCUT SCH ×4 (08:59→21:17)
[2021-12-13] MEDS: INSULIN GLARGINE 100 UNITS/ML SUBCUT SCH ×2 (08:59→22:02)
[2021-12-13 12:00] VITALS: BP 103/72
[2021-12-13] MEDS: VANCOMYCIN 750MG PREMIX 150 ML IV SCH ×2 (13:51→21:17)
[2021-12-13] MEDS: HYDROCODONE/ACETAMINOPHEN 5/325MG TABLET PO PRN (13:56)
[2021-12-13 16:00] VITALS: BP 106/68
[2021-12-13 20:40] VITALS: BP 99/58
[2021-12-13] MEDS ORDERED: NALOXONE HCL 0.4MG/ML VIAL IV PRN (21:45)
[2021-12-13] MEDS: HYDROCODONE/ACETAMINOPHEN 10/325MG TABLET PO PRN (22:01)
[2021-12-14 00:15] VITALS: BP 101/61
[2021-12-14] MEDS: MEROPENEM 1,000 MG in SODIUM CHLORIDE 0.9% 100 ML IV SCH ×3 (01:30→18:00)
[2021-12-14] MEDS: ENOXAPARIN 40MG/0.4ML SYR SUBCUT SCH (11:05)
[2021-12-14 12:00] VITALS: BP 121/65
[2021-12-14] MEDS: HYDROCODONE/ACETAMINOPHEN 10/325MG TABLET PO PRN ×2 (12:42→21:36)
[2021-12-14] MEDS: INSULIN LISPRO 100 UNITS/ML SUBCUT SCH ×2 (13:21→21:37)
[2021-12-14] MEDS: INSULIN GLARGINE 100 UNITS/ML SUBCUT SCH ×2 (13:41→22:52)
[2021-12-14] MEDS: GABAPENTIN 300MG CAPSULE PO SCH ×2 (14:00→21:37)
[2021-12-14] MEDS: VANCOMYCIN 750MG PREMIX 150 ML IV SCH ×2 (14:30→22:53)
[2021-12-14 16:00] VITALS: BP 130/50
[2021-12-14 20:00] VITALS: BP 103/57
[2021-12-14] MEDS: BLOOD SUGAR DIAGNOSTIC STRIP TEST SCH (21:17)
[2021-12-15] VITALS: BP 92/59
[2021-12-15] MEDS: MEROPENEM 1,000 MG in SODIUM CHLORIDE 0.9% 100 ML IV SCH ×3 (02:00→19:03)
[2021-12-15 04:00] VITALS: BP 92/59
[2021-12-15] MEDS: GABAPENTIN 300MG CAPSULE PO SCH ×3 (06:29→21:51)
[2021-12-15 08:00] VITALS: BP 109/86
[2021-12-15] MEDS: BLOOD SUGAR DIAGNOSTIC STRIP TEST SCH ×4 (08:19→21:51)
[2021-12-15] MEDS: ENOXAPARIN 40MG/0.4ML SYR SUBCUT SCH (08:44)
[2021-12-15] MEDS: HYDROCODONE/ACETAMINOPHEN 10/325MG TABLET PO PRN ×3 (08:50→22:27)
[2021-12-15] MEDS: VANCOMYCIN 750MG PREMIX 150 ML IV SCH ×2 (08:51→21:51)
[2021-12-15] MEDS: INSULIN LISPRO 100 UNITS/ML SUBCUT SCH ×4 (08:52→21:00)
[2021-12-15] MEDS: INSULIN GLARGINE 100 UNITS/ML SUBCUT SCH ×2 (11:54→21:38)
[2021-12-15 16:00] VITALS: BP 89/50
[2021-12-15 20:00] VITALS: BP 91/53
[2021-12-16] MEDS: MEROPENEM 1,000 MG in SODIUM CHLORIDE 0.9% 100 ML IV SCH ×3 (01:22→17:44)
[2021-12-16] MEDS: GABAPENTIN 300MG CAPSULE PO SCH ×3 (06:25→22:05)
[2021-12-16] MEDS: HYDROCODONE/ACETAMINOPHEN 10/325MG TABLET PO PRN ×2 (06:25→14:53)
[2021-12-16 08:00] VITALS: BP 124/73
[2021-12-16] MEDS: BLOOD SUGAR DIAGNOSTIC STRIP TEST SCH ×4 (08:04→21:00)
[2021-12-16] MEDS: VANCOMYCIN 750MG PREMIX 150 ML IV SCH ×2 (08:41→22:03)
[2021-12-16] MEDS: INSULIN LISPRO 100 UNITS/ML SUBCUT SCH ×4 (08:43→22:04)
[2021-12-16] MEDS: ENOXAPARIN 40MG/0.4ML SYR SUBCUT SCH (08:48)
[2021-12-16] MEDS: INSULIN GLARGINE 100 UNITS/ML SUBCUT SCH ×2 (09:38→22:05)
[2021-12-16 12:00] VITALS: BP 100/60
[2021-12-16 16:00] VITALS: BP 105/53
[2021-12-16 20:00] VITALS: BP 105/50
[2021-12-17] VITALS: BP 90/49
[2021-12-17 04:00] VITALS: BP 96/49
[2021-12-17] MEDS: GABAPENTIN 300MG CAPSULE PO SCH ×3 (06:09→21:37)
[2021-12-17] MEDS: MEROPENEM 1,000 MG in SODIUM CHLORIDE 0.9% 100 ML IV SCH ×3 (06:39→18:13)
[2021-12-17] MEDS: BLOOD SUGAR DIAGNOSTIC STRIP TEST SCH ×3 (06:40→17:27)
[2021-12-17] MEDS: INSULIN LISPRO 100 UNITS/ML SUBCUT SCH ×4 (06:40→21:59)
[2021-12-17 08:00] VITALS: BP 100/50
[2021-12-17] MEDS: VANCOMYCIN 750MG PREMIX 150 ML IV SCH ×2 (08:57→21:37)
[2021-12-17] MEDS: ENOXAPARIN 40MG/0.4ML SYR SUBCUT SCH (08:57)
[2021-12-17] MEDS: INSULIN GLARGINE 100 UNITS/ML SUBCUT SCH ×2 (09:09→23:59)
[2021-12-17 12:00] VITALS: BP 91/49
[2021-12-17 16:00] VITALS: BP 118/66
[2021-12-17 20:00] VITALS: BP 99/50
[2021-12-17] MEDS: HYDROCODONE/ACETAMINOPHEN 10/325MG TABLET PO PRN (21:55)
[2021-12-18] VITALS: BP 93/51
[2021-12-18 04:00] VITALS: BP 118/69
[2021-12-18] MEDS: GABAPENTIN 300MG CAPSULE PO SCH ×3 (06:16→21:11)
[2021-12-18] MEDS: BLOOD SUGAR DIAGNOSTIC STRIP TEST SCH ×4 (07:20→21:11)
[2021-12-18] MEDS: INSULIN LISPRO 100 UNITS/ML SUBCUT SCH ×4 (07:50→20:45)
[2021-12-18 08:00] VITALS: BP 116/68
[2021-12-18] MEDS: ENOXAPARIN 40MG/0.4ML SYR SUBCUT SCH (09:21)
[2021-12-18] MEDS: HYDROCODONE/ACETAMINOPHEN 10/325MG TABLET PO PRN ×3 (09:30→20:44)
[2021-12-18] MEDS: INSULIN GLARGINE 100 UNITS/ML SUBCUT SCH ×2 (09:33→21:11)
[2021-12-18 12:00] VITALS: BP 146/79
[2021-12-18 16:00] VITALS: BP 103/54
[2021-12-18 20:00] VITALS: BP 105/63
[2021-12-19 04:00] VITALS: BP 126/84
[2021-12-19] MEDS: GABAPENTIN 300MG CAPSULE PO SCH ×3 (06:00→21:20)
[2021-12-19] MEDS: BLOOD SUGAR DIAGNOSTIC STRIP TEST SCH ×4 (06:21→21:17)
[2021-12-19] MEDS: INSULIN LISPRO 100 UNITS/ML SUBCUT SCH ×4 (07:27→21:18)
[2021-12-19 08:00] VITALS: BP 112/64
[2021-12-19] MEDS: ENOXAPARIN 40MG/0.4ML SYR SUBCUT SCH (09:12)
[2021-12-19] MEDS: INSULIN GLARGINE 100 UNITS/ML SUBCUT SCH ×2 (09:13→21:19)
[2021-12-19] MEDS: HYDROCODONE/ACETAMINOPHEN 10/325MG TABLET PO PRN ×3 (09:21→21:21)
[2021-12-19 12:00] VITALS: BP 124/76
[2021-12-19 16:00] VITALS: BP 97/64
[2021-12-20] MEDS: GABAPENTIN 300MG CAPSULE PO SCH ×2 (05:35→21:11)
[2021-12-20] MEDS: BLOOD SUGAR DIAGNOSTIC STRIP TEST SCH ×2 (07:20→21:23)
[2021-12-20] MEDS: INSULIN LISPRO 100 UNITS/ML SUBCUT SCH ×2 (07:50→21:27)
[2021-12-20 08:00] VITALS: BP 110/64
[2021-12-20] MEDS: ENOXAPARIN 40MG/0.4ML SYR SUBCUT SCH (09:00)
[2021-12-20] MEDS: HYDROCODONE/ACETAMINOPHEN 10/325MG TABLET PO PRN ×3 (09:34→21:11)
[2021-12-20 12:00] VITALS: BP 86/62
[2021-12-20] MEDS ORDERED: LANTUSUD SUBCUT (14:14)
[2021-12-20] MEDS ORDERED: GABA-532 PO (14:14)
[2021-12-20 16:00] VITALS: BP 116/65
[2021-12-20] MEDS: INSULIN GLARGINE 100 UNITS/ML SUBCUT SCH (21:23)
[2021-12-21] VITALS: BP 96/60
[2021-12-21] MEDS: GABAPENTIN 300MG CAPSULE PO SCH ×2 (05:55→13:03)
[2021-12-21] MEDS: INSULIN LISPRO 100 UNITS/ML SUBCUT SCH ×2 (07:50→13:08)
[2021-12-21 08:00] VITALS: BP 113/65
[2021-12-21] MEDS: BLOOD SUGAR DIAGNOSTIC STRIP TEST SCH ×2 (08:00→12:26)
[2021-12-21] MEDS: ENOXAPARIN 40MG/0.4ML SYR SUBCUT SCH (09:01)
[2021-12-21] MEDS: HYDROCODONE/ACETAMINOPHEN 10/325MG TABLET PO PRN (10:44)
[2021-12-21] MEDS: INSULIN GLARGINE 100 UNITS/ML SUBCUT SCH (10:46)
[2021-12-21 12:00] VITALS: BP 107/67
[2021-12-21 14:34] VITALS: BP 107/67
== END 2021-12-21 15:08 | disposition home health service (06) | DRG 720 ==
LOC: ER 07:16 → EDBEDREQ 12:34 → EDBEDREQSVC 12:34 → EDBEDREQTM 12:34 → ENRESERV 14:29 → 7WST 16:33 → 6EST 12-15 10:19
PROVIDERS: ADMIT Internal Medicine; ATTEND Internal Medicine
PROC: 0JBQ0ZZ Excision of Right Foot Subcutaneous Tissue and Fascia, Open Approach (ICD-10-PCS; 2021-12-11)
PROC: 0JBR0ZZ Excision of Left Foot Subcutaneous Tissue and Fascia, Open Approach (ICD-10-PCS; 2021-12-11)
PROC: 02HV33Z Insertion of Infusion Device into Superior Vena Cava, Percutaneous Approach (ICD-10-PCS; 2021-12-11)
PROC: B548ZZA Ultrasonography of Superior Vena Cava, Guidance (ICD-10-PCS; 2021-12-11)
PROC: B5181ZA Fluoroscopy of Superior Vena Cava using Low Osmolar Contrast, Guidance (ICD-10-PCS; 2021-12-11)
PROC: 0JBR0ZZ Excision of Left Foot Subcutaneous Tissue and Fascia, Open Approach (ICD-10-PCS; principal; 2021-12-18)
PROC: 0JBQ0ZZ Excision of Right Foot Subcutaneous Tissue and Fascia, Open Approach (ICD-10-PCS; 2021-12-18)
DX: A41.9 Sepsis, unspecified organism (principal); E44.0 Moderate protein-calorie malnutrition; E11.51 Type 2 diabetes mellitus with diabetic peripheral angiopathy without gangrene; E87.1 Hypo-osmolality and hyponatremia; L03.116 Cellulitis of left lower limb; B96.20 Unspecified Escherichia coli [E. coli] as the cause of diseases classified elsewhere; D64.9 Anemia, unspecified; F14.90 Cocaine use, unspecified, uncomplicated; Z91.19 Patient's noncompliance with other medical treatment and regimen; Z89.432 Acquired absence of left foot; Z79.4 Long term (current) use of insulin; Z71.51 Drug abuse counseling and surveillance of drug abuser; Z59.00 Homelessness unspecified; Z68.24 Body mass index [BMI] 24.0-24.9, adult; B95.62 Methicillin resistant Staphylococcus aureus infection as the cause of diseases classified elsewhere
CPT/HCPCS: 36415; 36573; 71045; 73630; 73718; 80048; 80053; 80202; 80305; 80320; 82962; 83036; 83605; 84145; 85025; 85651; 87070; 87075; 87077; 87186; 87426; 93005; 93970; 97116; 97162; 99285; C1725; J0696; J1650; J1815; J1885; J2185; J2543; J3370; J3490; J7050; J7060; G0480